=== PATIENT | male | born 1965 | race Caucasian/White ===

== ENCOUNTER → 2019-11-11 | Outpatient (CLI) | payer BC ==
[2019-11-11 18:01] LABS: Basophils # (A) 0.1 k/uL (0-0.2); Basophils % (A) 1 %; Eosinophils # (A) 0.1 k/uL (0-0.7); Eosinophils % (A) 1 %; HCT 47.8 % (39.0-53.0); HGB 16.2 gm/dL (13.0-17.5); Lymphocytes # (A) 1.9 k/uL (1.0-4.8); Lymphocytes % (A) 20 %; MCHC 33.9 g/dL (31.0-37.0); MCV 94.4 fL (80.0-100.0); Mean Platelet Volume 9.8; Monocytes # (A) 0.6 k/uL (0-1.0); Monocytes % (A) 7 %; Neutrophils # (A) 6.3 k/uL (1.3-7.7); Neutrophils % (A) 69 %; Platelet Count 173 k/uL (150-450); RBC 5.06 m/uL (4.30-5.90); RDW 12.8 % (11.5-15.5); WBC 9.2 k/uL (3.8-10.6)
== END | disposition home or self-care (01) ==
LOC: LABPAT 16:16
PROVIDERS: ATTEND Surgery
DX: Z01.818 Encounter for other preprocedural examination (principal); Z01.812 Encounter for preprocedural laboratory examination; K43.2 Incisional hernia without obstruction or gangrene
CPT/HCPCS: 85025; 86850; 86900; 86901; 93005

== ENCOUNTER 2019-11-17 11:11 | Day surgery (SDC) | payer BC ==
[2019-11-16 08:58] VITALS: BMI 28.8
[~2019-11-17 11:11] MED LIST: DEXAMETHASONE SOD PHOSPHATE 10 MG/ML 1 ML VIAL IV ONE; HEPARIN SODIUM,PORCINE 5,000 UNIT/ML 1 ML VIAL SQ ONE; LACTATED RINGERS 1,000 ML IV SCH; LIDOCAINE 1% 20 ML VIAL (10MG/ML) FOR IV START INTRADERMA PRN; ONDANSETRON 4 MG/2 ML VIAL IVP ONE; SCOPOLAMINE 1.5MG/72HR PATCH TRANSDERM ONE
[2019-11-17] MEDS ORDERED: MIDAZOLAM 2 MG/2 ML VIAL IVP ONE (12:23)
[2019-11-17] MEDS ORDERED: fentaNYL (PF) 50 MCG/ML 2 ML AMP IVP ONE (12:24)
--- NOTE | 2019-11-17 12:55 | P.ANPRN ---
Procedure Note - Anesthesia - Nerve Block Performed Right Rectus Abdominis Single Time Out Performed: Yes (1221) Date of Procedure: 11/17/19 Procedure Start Time: 12:23 Procedure Stop Time: 12:26 Location of Patient: PreOp Indication: Acute Post-Operative Pain, Requested by Surgeon Specifically requested for management of pain by DrBeth: Theo Melendrez Sedation Type: Sedate with meaningful contact maintained Preparation: Sterile Prep Position: Supine Needle Types: Pajunk Needle Gauge: 20 Ultrasound used to visualize needle placement: Yes Ultrasound used to observe medication spread: Yes Injectate: Other (see comment) (Ropi 0.25% 20cc) Blood Aspirated: No Pain Paresthesia on Injection Noted: No Resistance on Injection: Normal Image Stored and Saved: Yes Events: Uneventful and Well Tolerated Left Rectus Abdominis Single Time Out Performed: Yes (1221) Date of Procedure: 11/17/19 Procedure Start Time: 12:27 Procedure Stop Time: 12:31 Location of Patient: PreOp Indication: Acute Post-Operative Pain, Requested by Surgeon Specifically requested for management of pain by DrBeth: Theo Melendrze Sedation Type: Sedate with meaningful contact maintained Preparation: Sterile Prep Position: Supine Catheter: None Needle Types: Pajunk Needle Gauge: 20 Ultrasound used to visualize needle placement: Yes Ultrasound used to observe medication spread: Yes Injectate: Other (see comment) (Ropi 0.25% 20 cc) Blood Aspirated: No Pain Paresthesia on Injection Noted: No Resistance on Injection: Normal Image Stored and Saved: Yes Events: Uneventful and Well Tolerated
--- NOTE | 2019-11-17 13:14 | P.GSHP ---
History of Present Illness H&P Date: 11/17/19 Chief Complaint: Incisional hernia This a 54-year-old male who presents today for laparoscopic robotic repair of incisional hernia. Patient developed a small hernia just below the umbilicus. He's had previous hernia repair. Past Medical History Past Medical History: Prostate Disorder History of Any Multi-Drug Resistant Organisms: None Reported Past Surgical History: Appendectomy, Hernia Repair, Orthopedic Surgery Additional Past Surgical History / Comment(s): ORIF LT HAND with plates, LT KNEE SX, hiatal hernia repair Past Anesthesia/Blood Transfusion Reactions: No Reported Reaction Smoking Status: Never smoker - Past Family History Mother Family Medical History: No Reported History Medications and Allergies Home Medications Medication Instructions Recorded Confirmed Type Tamsulosin HCl [Flomax] 0.4 mg PO DAILY 11/16/19 11/17/19 History Venlafaxine HCl [Effexor] 75 mg PO DAILY 11/16/19 11/17/19 History Allergies Allergy/AdvReac Type Severity Reaction Status Date / Time No Known Allergies Allergy Verified 11/17/19 11:34 Surgical - Exam Vital Signs Temp Pulse Resp BP Pulse Ox 97.6 F 70 16 130/78 96 11/17/19 11:43 11/17/19 11:43 11/17/19 11:43 11/17/19 11:43 11/17/19 11:43 - General well developed, well nourished, no distress - Eyes PERRL - ENT normal pinna - Neck no masses - Respiratory normal expansion - Cardiovascular Rhythm: regular - Abdomen Abdomen: soft, non tender Assessment and Plan Assessment: Incisional hernia. We'll perform laparoscopic robotic-assisted repair.
[2019-11-17] MEDS ORDERED: LIDOCAINE 1% INJ 10MG/ML (20 ML MDV) ONE (14:18)
[2019-11-17] MEDS ORDERED: ROPIVACAINE 5 MG/ML 30 ML VIAL ONE (14:18)
[2019-11-17] MEDS ORDERED: HYDROmorphone (PF) 1 MG/ML ONE (14:18)
[2019-11-17] MEDS ORDERED: KETAMINE 10 MG/ML 20 ML VIAL ONE (14:18)
[2019-11-17] MEDS ORDERED: GLYCOPYRROLATE 0.2 MG/ML 2 ML VIAL ONE (14:18)
[2019-11-17] MEDS ORDERED: ePHEDrine SULFATE/0.9% NACL/PF 50 MG/5 ML SYRINGE IV ONE (14:18)
[2019-11-17] MEDS ORDERED: NEOSTIGMINE 1 MG/ML 10 ML VIAL ONE (14:18)
[2019-11-17] MEDS ORDERED: MIDAZOLAM 2 MG/2 ML VIAL ONE (14:18)
[2019-11-17] MEDS ORDERED: SUCCINYLCHOLINE CHLORIDE 100 MG/5 ML SYR IV ONE (14:18)
[2019-11-17] MEDS ORDERED: KETOROLAC 30 MG/ML 1 ML VIAL ONE (14:18)
[2019-11-17] MEDS ORDERED: fentaNYL (PF) 50 MCG/ML 2 ML AMP ONE (14:18)
[2019-11-17] MEDS ORDERED: ROCURONIUM BROMIDE 10 MG/ML 10 ML VIAL IV ONE (14:18)
[2019-11-17] MEDS ORDERED: PROPOFOL 10 MG/ML 20 ML VIAL IV ONE (14:18)
[2019-11-17] MEDS ORDERED: BUPIVACAIN-EPI 0.25%-1:200,000 30 ML VIAL SQ ONE ×2 (14:50→14:52)
[2019-11-17] MEDS ORDERED: LACTATED RINGERS 1,000 ML IV ONE (15:35)
--- NOTE | 2019-11-17 15:36 | P.OP ---
Date of Procedure: 11/17/19 Preoperative Diagnosis: Incarcerated incisional hernia Postoperative Diagnosis: Incarcerated incisional hernia Procedure(s) Performed: Laparoscopic robotic system repair of incarcerated incisional hernia Partial omentectomy Anesthesia: KATIE Surgeon: Theo Melendrez Estimated Blood Loss (ml): 5 Pathology: other (Omentum) Condition: stable Disposition: PACU Description of Procedure: The patient was placed on the operating table in the supine position. He received general anesthesia. His abdomen was prepped and draped usual fashion. Using a 5 mm optical trocar under direct visualization the peritoneal cavity was entered in the left upper quadrant. The abdomen was then insufflated. The laparoscope was placed back into the perineal cavity. Next a 8 mm robotic trocar was placed in the left lower quadrant and a 12 mm robotic trocar was placed in the left lateral position. The original 5 mm trocar was exchanged for a 8 mm robotic trocar. The patient's placed in the left side up position. And the patient was docked to the robot. The incisional hernia was visualized. Using hook cautery the peritoneum over the incisional hernia was excised. The incarcerated omentum was dissected free and sent to pathology. The fascial opening was repaired using 0V LOC suture. Next a piece of 11 cm round ventral light ST mesh was placed into the. Cavity and secured with 2 OV lock suture. The patient was undocked the robot. The needles were retrieved. The fascia of the 12 mm trocar site was closed with 0 Ethibond suture. Skin was closed interrupted 3-0 Monocryl suture. Dermabond dressings was applied. Patient tolerated procedure well and was sent to recovery room stable condition.
[2019-11-17] MEDS: HYDROmorphone 0.5 MG/0.5 ML SYRINGE IVP PRN ×4 (15:56→16:15)
[2019-11-17 16:01] VITALS: TEMP 98.3
[2019-11-17 17:11] VITALS: BP 129/78; PULSE 89; RESP 18
== END 2019-11-17 17:39 | disposition home or self-care (01) ==
LOC: OR 11:11
PROVIDERS: ATTEND Surgery
DX: K43.0 Incisional hernia with obstruction, without gangrene (principal); N40.0 Benign prostatic hyperplasia without lower urinary tract symptoms; Z98.890 Other specified postprocedural states; Z90.49 Acquired absence of other specified parts of digestive tract; Z87.81 Personal history of (healed) traumatic fracture; Z79.899 Other long term (current) drug therapy
CPT/HCPCS: 49655; S2900; 64488; 88305

== ENCOUNTER 2020-12-04 17:11 | Inpatient (IN) | payer BC ==
--- NOTE | 2020-12-04 17:29 | ED ---
Upper Extremity HPI - General Chief Complaint: Extremity Injury, Upper Stated Complaint: Left arm fx Time Seen by Provider: 12/04/20 17:13 Source: patient Mode of arrival: ambulatory Limitations: no limitations - History of Present Illness Initial Comments: Patient is a 55-year-old male presenting to the emergency department via EMS with complaints of a left arm fracture. Patient was attempting to remove a tree that he was cutting down when his overhead crane truck loader accidentally hit another tree which came falling down and hit him in his left forearm. Patient has obvious deformity of left forearm. He did receive a total of 175 g of fentanyl in the EMS prior to arrival. He states his pain is currently an 8/10 however patient is sitting comfortably, talking without any acute distress. Patient denies any previous injuries of his left forearm. He denies pain anywhere else, he did not hit his head. He denies pain of the left shoulder, left elbow. He is able to wiggle all of his fingers. He has no further complaints. Upon arrival to the ER, his blood pressure is 119/88, rest of vitals are also normal. - Related Data Home Medications Medication Instructions Recorded Confirmed Tamsulosin HCl [Flomax] 0.4 mg PO DAILY 11/16/19 12/04/20 Venlafaxine HCl [Effexor] 75 mg PO DAILY 11/16/19 12/04/20 Inulin/Chromium Picolinate [Fiber 2 tab PO DAILY 12/04/20 12/04/20 Gummies Chew] Allergies Allergy/AdvReac Type Severity Reaction Status Date / Time No Known Allergies Allergy Verified 12/04/20 18:26 Review of Systems ROS Statement: Those systems with pertinent positive or pertinent negative responses have been documented in the HPI. ROS Other: All systems not noted in ROS Statement are negative. Past Medical History Past Medical History: Prostate Disorder History of Any Multi-Drug Resistant Organisms: None Reported Past Surgical History: Appendectomy, Hernia Repair, Orthopedic Surgery Additional Past Surgical History / Comment(s): ORIF LT HAND with plates, LT KNEE SX, hiatal hernia repair Past Anesthesia/Blood Transfusion Reactions: No Reported Reaction Past Psychological History: Anxiety Smoking Status: Never smoker Past Alcohol Use History: None Reported Past Drug Use History: None Reported - Past Family History Mother Family Medical History: No Reported History General Exam - General Exam Comments Initial Comments: GENERAL: Patient is well-developed and well-nourished. Patient is nontoxic and in no acute distress. HEAD: Atraumatic, normocephalic. EYES: Pupils equal round and reactive to light, extraocular movements intact, sclera anicteric, conjunctiva are normal. Eyelids were unremarkable. ENT: TMs normal, nares patent, oropharynx clear without exudates. Moist mucous membranes. NECK: Normal range of motion, supple without lymphadenopathy or JVD. LUNGS: Unlabored respirations. Breath sounds clear to auscultation bilaterally and equal. No wheezes rales or rhonchi. HEART: Regular rate and rhythm without murmurs, rubs or gallops. ABDOMEN: Soft, nontender, normoactive bowel sounds. No guarding, no rebound. No masses appreciated. : Deferred MUSCULOSKELETAL: Patient has obvious deformity of the left forearm, mid shaft area. He is able to wiggle all of his left fingers, he is neurovascular intact. Patient has no pain of the left elbow, left upper arm. He has no pain in the left wrist. No clubbing or cyanosis. NEUROLOGICAL: Patient is alert and oriented x 3. Motor and sensory are also intact. Cranial nerves II through XII grossly intact. Symmetrical smile. Normal speech, normal gait. PSYCH: Normal mood, normal affect. SKIN: Warm, Dry, normal turgor, no rashes. Patient does have a very superficial small abrasion on the top of his forearm, there is no active bleeding from this. Patient also seems to have a small puncture wound on the underneath portion of the forearm, it is unknown at this is from the fracture itself or may be a pinch of the arm resting on the truck. Limitations: no limitations Course Vital Signs 12/04/20 12/04/20 17:14 18:58 Temperature 98.1 F Pulse Rate 69 92 Respiratory 18 18 Rate Blood Pressure 119/88 116/88 O2 Sat by Pulse 95 98 Oximetry Procedures - Orthopedic Splinting/Casting Injury #1 Side: left Upper Extremity Injury Location: short arm (left forearm) Upper Extremity Immobilizer: sugar tong splint, Hitesh wrap, synthetic pre-padded splint Medical Decision Making - Medical Decision Making Patient is a 55-year-old male here for left arm injury after a tree branch fell on it. Patient has obvious deformity of the left forearm. X-rays reveal a transverse fracture through the midshaft of the radius with 100% anterior displacement of the distal fragment, there is also an oblique fracture between the middle and distal thirds of the ulna with 100% offset of the fragment. Use soft tissue air bubbles around the distal forearm consistent with a laceration. Patient did receive a total of 175 g of fentanyl in the EMS prior to arrival, I did give him an additional 4 mg of morphine as his pain continued to increase. Case was discussed with Dr. Malone, who agrees to admit the patient, he will plan on surgery in the morning. Patient will be NPO after midnight. I did attempt to place patient in a sugar tong splint. I also ordered an EKG, chest x-ray and basic labs for surgery prep. EKG, chest x-ray show no acute abnormalities, normal sinus rhythm. Labs are pending at this time. Patient was given 2 g of cefazolin. Patient was discussed with Dr. Wesley. - Lab Data Result diagrams: 12/04/20 18:39 12/04/20 18:39 Lab Results 12/04/20 12/04/20 12/04/20 Range/Units 18:39 18:39 18:39 WBC 14.8 H (3.8-10.6) k/uL RBC 4.94 (4.30-5.90) m/uL Hgb 15.4 (13.0-17.5) gm/dL Hct 46.1 (39.0-53.0) % MCV 93.5 (80.0-100.0) fL MCH 31.2 (25.0-35.0) pg MCHC 33.4 (31.0-37.0) g/dL RDW 13.3 (11.5-15.5) % Plt Count 153 (150-450) k/uL MPV 9.0 Neutrophils % 89 % Lymphocytes % 6 % Monocytes % 5 % Eosinophils % 0 % Basophils % 0 % Neutrophils # 13.1 H (1.3-7.7) k/uL Lymphocytes # 0.9 L (1.0-4.8) k/uL Monocytes # 0.7 (0-1.0) k/uL Eosinophils # 0.1 (0-0.7) k/uL Basophils # 0.0 (0-0.2) k/uL PT 10.3 (9.0-12.0) sec INR 1.0 (<1.2) APTT 22.0 (22.0-30.0) sec Sodium 140 (137-145) mmol/L Potassium 4.1 (3.5-5.1) mmol/L Chloride 105 (98-107) mmol/L Carbon Dioxide 28 (22-30) mmol/L Anion Gap 7 mmol/L BUN 18 (9-20) mg/dL Creatinine 0.78 (0.66-1.25) mg/dL Est GFR (CKD-EPI)AfAm >90 (>60 ml/min/1.73 sqM) Est GFR (CKD-EPI)NonAf >90 (>60 ml/min/1.73 sqM) Glucose 133 H (74-99) mg/dL Calcium 8.8 (8.4-10.2) mg/dL Total Bilirubin 0.5 (0.2-1.3) mg/dL AST 59 (17-59) U/L ALT 81 H (4-49) U/L Alkaline Phosphatase 89 (38-126) U/L Total Protein 7.3 (6.3-8.2) g/dL Albumin 4.3 (3.5-5.0) g/dL - EKG Data EKG Comments: Normal sinus rhythm, normal ECG, no signs of acute process. Ventricular rate 65, FL 122, QT 398. Similar to previous on 11/11/2019. Disposition Clinical Impression: Fracture of shaft of left ulna and radius Disposition: ADMITTED IP TO THIS [facility] Condition: Stable Decision Date: 12/04/20 Decision Time: 18:37
--- NOTE | 2020-12-04 18:00 | XR ---
EXAMINATION TYPE: XR forearm LT DATE OF EXAM: 12/04/2020 COMPARISON: NONE HISTORY: Swelling. The treee fell on the arm. TECHNIQUE: 3 views FINDINGS: There is a transverse fracture mid shaft of the radius with 100% anterior displacement of t he distal fragment. There is oblique fracture between middle and distal thirds of the ulna with 100% offset of the fragment distally. Distal fragment is posteriorly displaced 1.5 cm. There is a few soft tissue air bubbles around the distal forearm consistent with laceration. The elbow joint is intact. The wrist joint appears intact. There are dates and screws fixing old fractures of the second and thi rd metacarpals. . IMPRESSION: Acute fractures of the radius and ulna shaft as above.
[2020-12-04] MEDS ORDERED: ONDANSETRON 4 MG/2 ML VIAL IVP STA (18:09)
[2020-12-04] MEDS ORDERED: MORPHINE SULFATE 4 MG/ML SYRINGE IVP STA (18:09)
[2020-12-04] MEDS ORDERED: NALOXONE 0.4 MG/ML 1 ML VIAL IV PRN (18:34)
[2020-12-04] MEDS ORDERED: MORPHINE SULFATE 4 MG/ML SYRINGE IV PRN (18:34)
[2020-12-04] MEDS ORDERED: ACETAMINOPHEN TAB 325 MG TAB PO PRN (18:34)
[2020-12-04 19:01] LABS: Basophils % (A) 0 %; Eosinophils # (A) 0.1 k/uL (0-0.7); Eosinophils % (A) 0 %; HCT 46.1 % (39.0-53.0); HGB 15.4 gm/dL (13.0-17.5); Lymphocytes # (A) 0.9 k/uL (1.0-4.8); Lymphocytes % (A) 6 %; MCH 31.2 pg (25.0-35.0); MCHC 33.4 g/dL (31.0-37.0); MCV 93.5 fL (80.0-100.0); Monocytes # (A) 0.7 k/uL (0-1.0); Monocytes % (A) 5 %; Neutrophils # (A) 13.1 k/uL (1.3-7.7); Neutrophils % (A) 89 %; Platelet Count 153 k/uL (150-450); RBC 4.94 m/uL (4.30-5.90); RDW 13.3 % (11.5-15.5); WBC 14.8 k/uL (3.8-10.6)
[2020-12-04 19:04] LABS: ALT 81 U/L (4-49); AST 59 U/L (17-59); African American GFR (CKD) >90 (>60 ml/min/1.73 sqM); Albumin 4.3 g/dL (3.5-5.0); Alkaline Phosphatase 89 U/L (38-126); Anion Gap 7 mmol/L; Blood Urea Nitrogen 18 mg/dL (9-20); Calcium 8.8 mg/dL (8.4-10.2); Carbon Dioxide 28 mmol/L (22-30); Chloride 105 mmol/L (98-107); Glucose 133 mg/dL (74-99); Non-African American GFR(CKD) >90 (>60 ml/min/1.73 sqM); Potassium 4.1 mmol/L (3.5-5.1); Sodium 140 mmol/L (137-145); Total Bilirubin 0.5 mg/dL (0.2-1.3); Total Protein 7.3 g/dL (6.3-8.2)
--- NOTE | 2020-12-04 19:26 | XR ---
EXAMINATION TYPE: XR chest 1V portable DATE OF EXAM: 12/04/2020 COMPARISON: NONE HISTORY: Preop. TECHNIQUE: Single view FINDINGS: Heart and mediastinum are normal. Lungs are clear of infiltrate. There is no heart failure. There are no hilar masses. Bony thorax is intact. IMPRESSION: No active cardiopulmonary disease.
[2020-12-04 19:35] LABS: Prothrombin Time 10.3 sec (9.0-12.0)
[2020-12-04] MEDS: HYDROmorphone 1 MG/ML 1 ML SYRINGE IVP PRN (23:24)
[2020-12-05] MEDS: HYDROmorphone 1 MG/ML 1 ML SYRINGE IVP PRN ×5 (04:38→22:42)
--- NOTE | 2020-12-05 07:22 | P.HPOR ---
History of Present Illness H&P Date: 12/05/20 Chief Complaint: Left forearm pain The patient is a 55-year-old [id number] male who presents after injuring himself yesterday. He had his left forearm pinched between a falling log. He was seen in the emergency room and placed in a splint. He denies previous injury to that forearm. He notes moderate pain. Review of Systems Musculoskeletal: Reports as per HPI Past Medical History Past Medical History: Prostate Disorder History of Any Multi-Drug Resistant Organisms: None Reported Past Surgical History: Appendectomy, Hernia Repair, Orthopedic Surgery (Left hand metacarpal fracture fixation) Additional Past Surgical History / Comment(s): ORIF LT HAND with plates, LT KNEE SX, hiatal hernia repair Past Anesthesia/Blood Transfusion Reactions: No Reported Reaction Past Psychological History: Anxiety Smoking Status: Never smoker Past Alcohol Use History: None Reported Past Drug Use History: None Reported - Past Family History Mother Family Medical History: No Reported History Medications and Allergies Home Medications Medication Instructions Recorded Confirmed Type Tamsulosin HCl [Flomax] 0.4 mg PO DAILY 11/16/19 12/04/20 History Venlafaxine HCl [Effexor] 75 mg PO DAILY 11/16/19 12/04/20 History Inulin/Chromium Picolinate [Fiber 2 tab PO DAILY 12/04/20 12/04/20 History Gummies Chew] Allergies Allergy/AdvReac Type Severity Reaction Status Date / Time No Known Allergies Allergy Verified 12/04/20 18:26 Physical Examination - Wrist & Hand left Location of pain: other (Left mid forearm) Appearance: other (Sugar tong splint in place, moderate left digital swelling) Tenderness with palpation: other (Midforearm) Results No acute distress Alert and oriented 4 Nontender cervical, thoracic and lumbar spine Nontender left shoulder and elbow Moderate swelling left forearm Light touch intact left digits No gross motor deficits left wrist/hand Capillary refill less than 2 seconds left digits Pelvis stable to external rotation stress No tenderness about the lower extremities No tenderness right upper extremity - Labs Labs: Abnormal Lab Results - Last 24 Hours (Table) 12/04/20 12/04/20 Range/Units 18:39 18:39 WBC 14.8 H (3.8-10.6) k/uL Neutrophils # 13.1 H (1.3-7.7) k/uL Lymphocytes # 0.9 L (1.0-4.8) k/uL Glucose 133 H (74-99) mg/dL ALT 81 H (4-49) U/L H & H 12/04/20 Range/Units 18:39 Hgb 15.4 (13.0-17.5) gm/dL Hct 46.1 (39.0-53.0) % Coagulation 12/04/20 Range/Units 18:39 INR 1.0 (<1.2) Result Diagrams: 12/04/20 18:39 12/04/20 18:39 - Diagnostic results Wrist/Hand MRI: image reviewed (Left displaced middle one third radial and ulnar shaft fractures) Assessment and Plan Assessment: Left middle one third radial and ulnar shaft fractures Crush injury left forearm Plan: I talked to the patient length regarding his condition and treatment options. I recommended proceeding with surgical intervention. We will plan to proceed with open reduction and internal fixation of his left both bone forearm fracture. Risks and benefits were discussed at length in layman's terms. Time with Patient: Greater than 30
[2020-12-05] MEDS: LACTATED RINGERS 1,000 ML IV SCH ×2 (10:27→21:02)
[2020-12-05] MEDS ORDERED: IV FLUID CONTINUATION 1,000 ML IV ONE (15:16)
[2020-12-05] MEDS ORDERED: ONDANSETRON 4 MG/2 ML VIAL IVP ONE (15:24)
[2020-12-05] MEDS ORDERED: DEXAMETHASONE SOD PHOSPHATE 4 MG/ML 1 ML VIAL IVP ONE (15:24)
[2020-12-05] MEDS ORDERED: LACTATED RINGERS 1,000 ML IV ONE (17:18)
--- NOTE | 2020-12-05 19:24 | P.OP ---
Date of Procedure: 12/05/20 Preoperative Diagnosis: Grade 1 open left radial and ulnar shaft fractures Postoperative Diagnosis: Same Procedure(s) Performed: Irrigation and debridement left open both bone forearm fracture/open reduction and internal fixation left radial and ulnar shaft fractures Implants: 8 hole and 7-hole 3.5 mm LCDCP plates Anesthesia: KATIE Surgeon: Gabriel Valentin Estimated Blood Loss (ml): 20 Pathology: none sent Condition: stable Disposition: PACU Indications for Procedure: The patient is a 55-year-old male who yesterday injured his left forearm after being crushed by a tree. He was initially seen in the emergency room and splinted. He was started on IV antibiotics. A discussion of the risks and benefits of operative intervention was made with patient. He opted to proceed with surgery. Operative risks to include infection, neurovascular injury, d evelopment of blood clots, possible development nonunion/malunion, and possible need for subsequent procedures was discussed. Informed consent was obtained. Operative Findings: As below Description of Procedure: The patient was brought to the operating room, and after induction general anesthesia the left upper extremity was prepped and draped in normal fashion. He was noted have a 2-3 mm wound over the full are aspect of the distal ulnar shaft. The tourniquet was inflated to 250 mmHg. This wound was copiously irrigated with normal saline and the wound edges were sharply debrided utilizing a scalpel down to the subcutaneous tissue. A 10 cm incision was then made along the volar radial aspect of the left forearm adjacent to the flexor carpi radialis. Skin was incised sharply. Subcu change tissues were divided bluntly. Electrocautery was used for hemostasis. The interval between the flexor carpi radialis and the brachial radialis was then developed. The radial artery was identified and gently retracted ulnarly. A portion of the pronator and supinator were elevated off the radial shaft and fracture site was identified and cleaned of clot and debris. This was then reduced with the aid of reduction clamps. Appeared to be a relatively transverse fracture pattern. A 7-hole 3.5 mm LCDCP plate was then placed along the volar surface. Compression of the fracture site was obtained. This was done with the aid of fluoroscopy. 3 cortical screws were placed proximal and distal to the fracture site. I felt this was very stable fixation. I then focused my attention on the distal ulnar shaft fracture. He 10 cm incision was made along the distal ulnar aspect the forearm over the subcutaneous border of the distal ulna. Skin was incised sharply. Subcu tissues were divided bluntly. Electrocautery was used for hemostasis. The periosteum was elevated to identify the fracture site. This was then provisionally reduced with reduction clamps. There was significant comminution involving approximately one third of the cortical thickness. An 8 hole 3.5 mm LCDCP plate was then placed and attached proximally with 3.5 mm cortical screws the appropriate length and distally in a similar fashion. Final fluoroscopic views to include AP and lateral views of the forearm showed adequate rastafari of radial and ulnar length along with fixation and implant placement. The wounds irrigated normal saline. The subcu tissues reapproximated interrupted 2-0 Vicryl sutures. The skin was reapproximated with 3-0 subcuticular Prolene suture. Tourniquet was deflated proximal 75 minutes total tourniquet time. Steri-Strips were applied. A sterile dressing was applied in addition to a sugar tong splint. The patient was then awoken from general anesthesia and transferred to recovery room in good condition. Blood loss was estimated 20 mL. No complications were incurred. Sponge and needle counts were correct at the end the case.
[2020-12-05] MEDS: ONDANSETRON 4 MG/2 ML VIAL IVP PRN (21:02)
[2020-12-06] MEDS: HYDROmorphone 1 MG/ML 1 ML SYRINGE IVP PRN ×3 (04:48→11:07)
[2020-12-06 08:07] VITALS: RESP 18
--- NOTE | 2020-12-06 08:27 | XR ---
Limited left forearm HISTORY: Fracture 2 intraoperative C-arm images document the procedure
--- NOTE | 2020-12-06 08:29 | FL ---
Fluoroscopy HISTORY: Open reduction internal fixation 42 seconds fluoroscopy time supplied to the referring clinician. 2 intraoperative C-arm images docum ent the procedure. See dictated report from orthopedic surgery.
[2020-12-06] MEDS: ONDANSETRON 4 MG/2 ML VIAL IVP PRN (12:40)
--- NOTE | 2020-12-06 13:00 | P.PN ---
Subjective Progress Note Date: 12/06/20 Principal diagnosis: Grade 1 open left both bone forearm fracture The patient notes moderate pain, otherwise feels well. Objective - Vital Signs Vital signs: Vital Signs Temp 98 F 12/06/20 07:14 Pulse 60 12/06/20 07:14 Resp 18 12/06/20 07:14 BP 129/79 12/06/20 07:14 Pulse Ox 93 L 12/06/20 07:14 Intake & Output 12/05/20 12/06/20 12/06/20 18:59 06:59 18:59 Intake Total 1200 200 Output Total 20 Balance 1180 200 Intake: IV 1200 0 Oral 200 Output: Estimated Blood Loss 20 Other: Voiding Method Toilet Toilet Toilet - Exam Left upper extremity splint intact Light touch intact left digits Fires left finger flexors and extensors/EPL/FPL/intrinsics Capillary refill less than 2 seconds left digits No pain with passive stretch left digits - Labs CBC & Chem 7: 12/04/20 18:39 12/04/20 18:39 Assessment and Plan Assessment: Status post open reduction and internal fixation grade 1 open left forearm fracture Plan: Clinically he is doing well. We will discharge him home on oral Keflex. Activi ty restrictions were discussed. Follow-up 2 weeks. Time with Patient: Less than 30
[2020-12-06] MEDS ORDERED: HYDROcodone/APAP 7.5-325MG 1 EACH TAB PO PRN (13:04)
--- NOTE | 2020-12-06 13:08 | P.DS ---
Providers Date of admission: 12/04/20 18:51 Expected date of discharge: 12/06/20 Attending physician: Gabriel Valentin Primary care physician: Nonstaff Hospital Course: The patient underwent irrigation and debridement with open reduction and internal fixation of his left grade 1 open radial and ulnar shaft fractures. He received IV antibiotics pre-and postop. He had good return of bowel and bladder function. He remained afebrile postoperatively. His pain was controlled with oral analgesia. Assessment: Status post incision and drainage with open reduction internal fixation left grade 1 open radial ulnar shaft fractures Procedures: Incision and drainage with open reduction internal fixation left grade 1 open radial and ulnar shaft fractures Patient Condition at Discharge: Good Plan - Discharge Summary Discharge Rx Participant: No New Discharge Prescriptions: New HYDROcodone/APAP 7.5-325MG [[place] 7.5-325] 1 - 2 tab PO Q4H PRN 3 Days #40 tab PRN Reason: Pain Cephalexin [Keflex] 500 mg PO Q6HR 10 Days #40 cap No Action Venlafaxine HCl [Effexor] 75 mg PO DAILY Tamsulosin HCl [Flomax] 0.4 mg PO DAILY Inulin/Chromium Picolinate [Fiber Gummies Chew] 2 tab PO DAILY Discharge Medication List Tamsulosin HCl [Flomax] 0.4 mg PO DAILY 11/16/19 [History] Venlafaxine HCl [Effexor] 75 mg PO DAILY 11/16/19 [History] Inulin/Chromium Picolinate [Fiber Gummies Chew] 2 tab PO DAILY 12/04/20 [History] Cephalexin [Keflex] 500 mg PO Q6HR 10 Days #40 cap 12/06/20 [Rx] HYDROcodone/APAP 7.5-325MG [[place] 7.5-325] 1 - 2 tab PO Q4H PRN 3 Days #40 tab 12/06/20 [Rx] Follow up Appointment(s)/Referral(s): Roberthtadonavan,Physician [Primary Care Provider] - 1-2 days Gabriel Valentin MD [STAFF PHYSICIAN] - 2 Weeks Activity/Diet/Wound Care/Special Instructions: Leave splint intact. Use sling to help elevate left arm. Activity restrictions as discussed. Keflex 500 mg 4 times daily 10 days. Follow-up 2 weeks. Call the office with any fevers/chills/or increasing pain. Discharge Disposition: HOME SELF-CARE
[2020-12-06] MEDS: LACTATED RINGERS 1,000 ML IV SCH (14:16)
[2020-12-06 14:49] VITALS: BP 138/73; PULSE 72; TEMP 98.2
== END 2020-12-06 16:34 | disposition home or self-care (01) | DRG 512 ==
LOC: EC 17:11 → 4SSUR 18:51
PROVIDERS: ADMIT Orthopaedic Surgery; ATTEND Orthopaedic Surgery
PROC: 2W3DX1Z Immobilization of Left Lower Arm using Splint (ICD-10-PCS; 2020-12-04)
PROC: 0PSJ04Z Reposition Left Radius with Internal Fixation Device, Open Approach (ICD-10-PCS; principal; 2020-12-05 07:30)
PROC: 0PSL04Z Reposition Left Ulna with Internal Fixation Device, Open Approach (ICD-10-PCS; principal; 2020-12-05 07:30)
DX: S52.322B Displaced transverse fracture of shaft of left radius, initial encounter for open fracture type I or II (principal); S52.222B Displaced transverse fracture of shaft of left ulna, initial encounter for open fracture type I or II; F41.9 Anxiety disorder, unspecified; Z20.822 Contact with and (suspected) exposure to COVID-19; N42.9 Disorder of prostate, unspecified; Z79.899 Other long term (current) drug therapy; Z90.49 Acquired absence of other specified parts of digestive tract; Z87.19 Personal history of other diseases of the digestive system; Z98.890 Other specified postprocedural states; Z87.81 Personal history of (healed) traumatic fracture; W23.0XXA Caught, crushed, jammed, or pinched between moving objects, initial encounter
CPT/HCPCS: 29125; 36415; 71045; 80053; 85025; 85610; 85730; 87635; 93005; 96365; 96375; 99285

== ENCOUNTER → 2023-06-24 | Outpatient (CLI) | payer BC ==
--- NOTE | 2023-06-24 17:01 | CA ---
Stress Echo Report Fabien Brink Age: 57 Gender: M : 1965 Exam Date: 06/24/2023 09:30 Exam Location: [facility] Ht (in): 70 Wt (lb): 204 Ordering Physician: Mirna Cleary DO Referring Physician: Keeley Davis Automatic Maintainer: Reba Lainez RDCS Technologist Procedure CPT: Indication: R07.89 chest pain ICD-9 Codes: Rhythm: Patient History: Atypical angina Cardiac Medications: Medications in past 24 hours: Contrast: Stress Results Protocol: Dilan Total dose(mL): Exercise Duration (min:sec): 9:[address] Depression (mm): Angina Score: Patterson Score: METS: 11.1 Resting HR: 81 Resting BP: 141 / 95 Peak HR: 160 Peak BP: 184 / 90 Max Predicted HR: 163 98 % Max Predicted HR Target HR: 139 Double Product: 31720 Stress Summary: The patient's target heart rate was achieved BP Response: Normal Reason for Termination: MAX EXERTION/TARGET HR Cardiac Symptoms: NO SYMPTOMS ECG Analysis Resting ECG: Stress ECG: Arrhythmia: Echo Analysis Resting Echo: Peak Echo Analysis: MEASUREMENTS (Male/Female) Normal Values CONCLUSIONS Good exercise capacity and a Dilan protocol for 9 minutes 32 seconds No ECG evidence for ischemia No echocardiographic evidence for ischemia Dr. Laci Rodriguez MD (Electronically Signed) Final Date: 24 June 2023 17:00
== END | disposition home or self-care (01) ==
LOC: RADNMMAIN 08:47
PROVIDERS: ATTEND Family Medicine
DX: R07.89 Other chest pain (principal)
CPT/HCPCS: 93351